=== PATIENT | male | born 1970 | race Two or more races ===

== ENCOUNTER 2025-04-21 06:50 | Day surgery (SDC) | payer MEDICAID, SELFPAY ==
[2025-04-20 13:55] VITALS: BMI 33.9
[2025-04-21] VITALS (9 sets, daily range): BP systolic 90–117; BP diastolic 59–80; PULSE 42–55; RESP 11–18; TEMP 36.2–36.4; O2SAT 94–97; BMI 32.1
[2025-04-21] MEDS: SODIUM CHLORIDE 0.9% 500 ML 500 ML 125 ML IV (07:23)
[2025-04-21] MEDS: DiphenhydrAMINE INJ 50 MG/ML VIAL 25 MG IVP (07:24)
[2025-04-21] MEDS: fentaNYL CIT INJ 50 mCg/ML AMP 2ML (ASD USE ONLY) IVP (07:29)
[2025-04-21] MEDS: MIDAZOLAM INJ 1 MG/ML VIAL 2 ML (ASD USE ONLY) 2 MG IVP (07:29)
== END 2025-04-21 08:20 | disposition home or self-care (01) ==
PROVIDERS: PCP Family Medicine; Referring Provider Surgery; Visit Provider Surgery
PROC: 0DBE8ZX Excision of Large Intestine, Via Natural or Artificial Opening Endoscopic, Diagnostic (ICD-10-PCS; CPT 45380; principal; 2025-04-21 07:30)
DX: K64.0 First degree hemorrhoids (principal); K57.30 Diverticulosis of large intestine without perforation or abscess without bleeding
CPT/HCPCS: 45378; J1200; J2250; J3010; J7040